=== PATIENT | female | born 1980 ===

== ENCOUNTER 2017-01-30 00:55 | Emergency (ER) | payer BC ==
[2017-01-30 00:56] VITALS: BMI 34.9
[2017-01-30 01:09] VITALS: O2SAT 99
--- NOTE | 2017-01-30 02:18 | C.PDOC ---
History Of Present Illness Pt is 36 y/o female with no known PMHx presents to ER with c/o of lower midsternal chest pain radiating to b/l ribcage since last night. She denies any trauma, fever, chills, neck pain, shortness of breath, cough, abdominal pain, nausea, vomiting, urinary symptoms, or other complaints. pt further denies recent OCP use, recent prolonged travel, recent immobility state. Pt reports past h/o of same x 15 yrs. No OTC pain meds were taken at home Time Seen by Provider: 01/30/17 01:27 Chief Complaint (Nursing): Chest Pain History Per: Patient History/Exam Limitations: no limitations Current Symptoms Are (Timing): Still Present Severity: Moderate Pain Scale Rating Of: 7 Quality: Aching Associated Symptoms: denies: Nausea, Dyspnea, Diaphoresis, Syncope Exacerbating Factors: Turning, Movement Recent travel outside of the [place]: No Past Medical History Vital Signs: Last Vital Signs Temp 98.7 F 01/30/17 01:06 Pulse 69 01/30/17 01:12 Resp 16 01/30/17 01:06 BP 121/71 01/30/17 01:06 Pulse Ox 99 01/30/17 02:41 - Medical History PMH: Anxiety, Depression Denies: Diabetes, Hepatitis, HIV, HTN, Chronic Kidney Disease, Seizures, Sexually Transmitted Disease - [facility] Procedures GROUP PSYCHOTHERAPY (11/07/16) Family History: States: Unknown Family Hx - Social History Hx Tobacco Use: No Hx Alcohol Use: No Hx Substance Use: No - Immunization History Hx Tetanus Toxoid Vaccination: No Hx Influenza Vaccination: No Hx Pneumococcal Vaccination: No Review Of Systems Constitutional: Negative for: Fever, Chills Cardiovascular: Positive for: Chest Pain (ribcage) Respiratory: Negative for: Cough, Shortness of Breath, Wheezing Gastrointestinal: Negative for: Vomiting, Abdominal Pain Musculoskeletal: Negative for: Back Pain Physical Exam - Physical Exam Appears: Well, Non-toxic, No Acute Distress Skin: Normal Color Head: Normacephalic Eye(s): bilateral: Normal Inspection, PERRL, EOMI Oral Mucosa: Moist Neck: Normal, Supple Chest: Symmetrical, Tenderness (to bilateral lower intercostal area anterior aspect with ), No Ecchymosis Cardiovascular: Rhythm Regular, No Murmur Respiratory: Normal Breath Sounds, No Rhonchi, No Wheezing Gastrointestinal/Abdominal: Normal Exam, Bowel Sounds (normal), Soft, No Distention Back: Normal Inspection Extremity: Normal ROM, No Calf Tenderness Neurological/Psych: Oriented x3 Gait: Steady ED Course And Treatment O2 Sat by Pulse Oximetry: 99 Pulse Ox Interpretation: Normal - Radiology CXR: Interpreted by Me CXR Interpretation: Yes: No Acute Disease. No: Infiltrates Progress Note: toradol IM and valium ordered. Pt is comfortable , pending CT. Now pt is comfortable in NAD sleeping in stretcher comfortably. CXR reviewed, pt will be d/c home and return precautions and follow up instructions discussed and does agree with plan Reevaluation Time: 04:00 Reassessment Condition: Improved Disposition Counseled Patient/Family Regarding: Diagnosis, Need For Followup - Disposition Referrals: Faisal Montes MD [Medical Doctor] - Disposition: HOME/ ROUTINE Disposition Time: 04:06 Condition: STABLE Additional Instructions: Please take all meds as prescribed Follow up with Dr montes Return to ER if worse Prescriptions: Cyclobenzaprine [Cyclobenzaprine HCl] 10 mg PO HS #7 tab Ibuprofen [Motrin] 600 mg PO Q6H #30 tab Instructions: Chest Wall Pain (ED) - Clinical Impression Clinical Impression: Intercostal muscle pain
[2017-01-30 04:31] VITALS: BP 115/80; PULSE 57; RESP 20; TEMP 97.7
--- NOTE | 2017-01-30 09:40 | RAD ---
HISTORY: chest pain COMPARISON: 08/30/2016 TECHNIQUE: Chest PA and lateral FINDINGS: LUNGS: Mild venous congestion. PLEURA: No significant pleural effusion identified. No pneumothorax apparent. CARDIOVASCULAR: Normal. OSSEOUS STRUCTURES: No significant abnormalities. VISUALIZED UPPER ABDOMEN: Normal. OTHER FINDINGS: None. IMPRESSION: Mild venous congestion.
--- NOTE | 2017-02-07 12:13 | CARD ---
APPROVED REPORT EKG Measurement Heart [id number] <Conclusion> Sinus rhythm with 1st degree AV block Otherwise normal ECG
== END 2017-01-30 04:31 | disposition home or self-care (01) ==
LOC: C.ER 00:55
DX: R07.82 Intercostal pain (principal)
CPT/HCPCS: 71020; 96372; 99284; J1885

== ENCOUNTER 2017-09-05 03:37 | Emergency (ER) | payer BC ==
[2017-09-05 03:39] VITALS: BMI 34.9
--- NOTE | 2017-09-05 04:44 | C.PDOC ---
History Of Present Illness 36 year old female presents to the ED c/o generalized body aches, subjective fever, malaise for the past 3 days. Patient reports today she had 5 episodes of diarrhea and also developed a dry cough. Patient denies vomit, decrease appetite , dysuria, back pain, abdominal pain, recent travel, sick contacts. Patient's daughter also a patient in the ED with same symptoms. Time Seen by Provider: 09/05/17 04:01 Chief Complaint (Nursing): Fever History Per: Patient History/Exam Limitations: no limitations Onset/Duration Of Symptoms: Days Current Symptoms Are (Timing): Still Present Location Of Pain: Diffuse Myalgias Sick Contacts (Context): Family Member(s) Associated Symptoms: Fever, Cough, Diarrhea Recent travel outside of the [place]: No Additional History Per: Patient Past Medical History Reviewed: Historical Data, Nursing Documentation, Vital Signs Vital Signs: Last Vital Signs Temp 98.1 F 09/05/17 04:07 Pulse 89 09/05/17 04:07 Resp 20 09/05/17 04:07 BP 118/77 09/05/17 04:07 Pulse Ox 99 09/05/17 04:47 - Medical History PMH: Anxiety, Depression Denies: Diabetes, Hepatitis, HIV, HTN, Chronic Kidney Disease, Seizures, Sexually Transmitted Disease Surgical History: No Surg Hx - [facility] Procedures GROUP PSYCHOTHERAPY (11/07/16) Family History: States: Unknown Family Hx - Social History Hx Tobacco Use: No Hx Alcohol Use: No Hx Substance Use: No - Immunization History Hx Tetanus Toxoid Vaccination: No Hx Influenza Vaccination: No Hx Pneumococcal Vaccination: No Review Of Systems Constitutional: Positive for: Fever. Negative for: Chills ENT: Negative for: Nose Discharge, Nose Congestion Cardiovascular: Negative for: Chest Pain Respiratory: Positive for: Cough. Negative for: Shortness of Breath Gastrointestinal: Positive for: Diarrhea. Negative for: Vomiting, Abdominal Pain Skin: Negative for: Rash Neurological: Negative for: Weakness, Numbness, Headache Physical Exam - Physical Exam Appears: Non-toxic, No Acute Distress Skin: Normal Color, Warm, Dry Head: Atraumatic, Normacephalic Eye(s): bilateral: Normal Inspection Ear(s): Bilateral: Normal Nose: No Discharge, No Deformity Oral Mucosa: Moist Throat: Normal, No Erythema, No Exudate Neck: Normal ROM, Supple Chest: Symmetrical Cardiovascular: Rhythm Regular, No Murmur Respiratory: Normal Breath Sounds, No Rales, No Rhonchi Gastrointestinal/Abdominal: Soft, No Tenderness, No Guarding, No Rebound Extremity: Normal ROM, No Tenderness, No Swelling Neurological/Psych: Oriented x3, Normal Speech, Normal Cognition Gait: Steady ED Course And Treatment O2 Sat by Pulse Oximetry: 99 (On RA) Pulse Ox Interpretation: Normal Progress Note: Plan: -Tamiflu 75 mg PO. Pt is stable in NAD, VSS. Tamiflu initiated. Pt instrcuted to take meds, stay hydrated with PO fluids, avoid dairy. Return precautions d/w pt who understand and agreed with plan Reevaluation Time: 05:26 Reassessment Condition: Improved Disposition Counseled Patient/Family Regarding: Diagnosis, Need For Followup, Rx Given - Disposition Referrals: [facility] [Outside] Disposition: HOME/ ROUTINE Disposition Time: 05:30 Condition: STABLE Additional Instructions: Drink plenty of fluids No dairy Take all meds prescribed Please follow up in clinic Return to ER if worse Prescriptions: Benzonatate [Tessalon Perles] 100 mg PO TID #20 sgl Ibuprofen [Motrin] 600 mg PO Q6H #20 tab Oseltamivir [Tamiflu] 75 mg PO BID #10 cap Instructions: Influenza (ED) Forms: [employer] (Divehi) Print Language: AZERBAIJANI - Clinical Impression Clinical Impression: Influenza-like illness - PA / [employer] DEVELOPER / Resident Statement MD/DO has reviewed & agrees with the documentation as recorded. - Scribe Statement The provider has reviewed the documentation as recorded by the Scribe Rico Nava All medical record entries made by the Scribe were at my direction and personally dictated by me. I have reviewed the chart and agree that the record accurately reflects my personal performance of the history, physical exam, medical decision making, and the department course for this patient. I have also personally directed, reviewed, and agree with the discharge instructions and disposition.
[2017-09-05 05:51] VITALS: BP 120/67; PULSE 80; RESP 16; TEMP 98; O2SAT 98
== END 2017-09-05 05:51 | disposition home or self-care (01) ==
LOC: C.ER 03:37
DX: J11.1 Influenza due to unidentified influenza virus with other respiratory manifestations (principal)